=== PATIENT | female | born 1965 | race Caucasian/White ===

== ENCOUNTER 2021-06-07 14:31 | Inpatient (IN) ==
[2021-06-07] MEDS ORDERED: ALBUTEROL/IPRATROPIUM 3 ML NEB RESP TX STA (19:54)
[2021-06-07] MEDS ORDERED: methylPREDNISolone SOD SUC 125 MG/2 ML VIAL IV STA (19:55)
[2021-06-07] MEDS ORDERED: cefTRIAXone 1,000 MG in SODIUM CHLORIDE 0.9% 100 ML IV STA (19:55)
[2021-06-07 20:18] LABS: Basophils # 0.1 10*3/uL (0.0-0.2); Basophils % 0.3 % (0.0-0.8); Eosinophils # 0.1 10*3/uL (0.0-0.87); Eosinophils % 0.7 % (0.00-10.9); Hematocrit 38.2 VOL% (35.7-47.0); Immature Granulocytes % 0.5 %; Immature Granulocytes Absolute 0.08 #; Lymphocytes # 3.8 10*3/uL (1.4-4.0); Lymphocytes % 21.9 % (21.3-54.2); Mean Corpuscular HGB Conc 31.4 GM/DL (32-36); Mean Platelet Volume 10.6 FL (9.6-12.0); Monocytes % 3.9 % (1.7-12.7); Neutrophils % 72.7 % (38.7-73.9); Platelet Count 194 T/CUMM (130-400); Red Blood Count 3.86 MC/CUMM (3.8-5.5); Red Cell Distribution Width 14.1 % (9.3-17.3); White Blood Count 17.3 T/CUMM (4-12)
[2021-06-07 20:39] LABS: Alanine Aminotransferase 14 U/L (13-56); Albumin 3.2 G/DL (3.4-5.0); Alkaline Phosphatase 108 U/L (45-117); Aspartate Amino Transferase 40 U/L (0-37); Blood Urea Nitrogen 16 MG/DL (7-18); Calcium 8.6 MG/DL (8.5-10.1); Carbon Dioxide 29 MMOL/L (21-32); Estimated Glom Filtration Rate 99 ML/MIN; Glucose 85 MG/DL (74-106); Osmolality,Calculated 276.5 MOS/KG (273-304); Potassium 4.5 MMOL/L (3.5-5.1); Sodium 139 MMOL/L (136-145); Total Protein 6.9 G/DL (6.4-8.2)
[2021-06-07] MEDS ORDERED: SODIUM CHLORIDE 0.9% 1,000 ML IV STA ×2 (21:18→22:20)
[2021-06-07] MEDS ORDERED: GLUCAGON 1 MG VIAL IM PRN (21:29)
[2021-06-07] MEDS ORDERED: MAGNESIUM SULF RIDER 2 GM/50 ML PREMIX IV PRN (21:29)
[2021-06-07] MEDS ORDERED: MAGNESIUM SULF RIDER 4 GM/100 ML PREMIX IV PRN (21:29)
[2021-06-07] MEDS ORDERED: SODIUM CHLORIDE 0.9% 2,850 ML IV ONE (21:29)
[2021-06-07] MEDS ORDERED: SIMETHICONE CHEW 125 MG TABLET PO PRN (21:33)
[2021-06-07] MEDS ORDERED: hydrALAZINE 20 MG/1 ML VIAL IV PRN (21:33)
[2021-06-07 21:46] LABS: Bacteria,Urine Occasional /HPF (Few); Bilirubin,Urine Negative (Negative); Blood, Urine Negative (Negative); Glucose,Urine (UA) Negative (Negative); Ketones,Urine 5 mg/dL (Negative); Mucus,Urine Occasional /LPF (Occasional); Nitrite,Urine Negative (Negative); Protein,Urine Negative; RBC,Urine 2 /HPF (0-4); Squamous Epithelial Cell,Urine Occasional /HPF (0-10); Urine Appearance CLEAR (Clear); Urine Color Yellow (Yellow); Urine Specific Gravity 1.025 (1.001-1.035); Urine Urobilinogen < 2.0 EU/DL (<2.0)
[2021-06-07] MEDS ORDERED: DEXTROSE 50% 25 GM/50 ML SYRINGE IV PRN (22:40)
[2021-06-07 22:56] LABS: INR 1.1; PT Patient Result 12.3 SECS (10.5-12.0); Partial Thromboplastin Time 21.4 SECS (23.8-32.1)
[2021-06-08] MEDS: ALBUTEROL/IPRATROPIUM 3 ML NEB RESP TX SCH ×5 (00:23→19:55)
[2021-06-08 00:34] LABS: Basophils % 0.3 % (0.0-0.8); Eosinophils % 0.1 % (0.00-10.9); Hematocrit 39.4 VOL% (35.7-47.0); Hemoglobin 12.6 GM/DL (12.0-16.0); Immature Granulocytes % 1.2 %; Immature Granulocytes Absolute 0.16 #; Lymphocytes # 0.9 10*3/uL (1.4-4.0); Lymphocytes % 6.7 % (21.3-54.2); Mean Corpuscular Volume 98.7 FL (87-102); Mean Platelet Volume 10.3 FL (9.6-12.0); Monocytes % 0.7 % (1.7-12.7); Platelet Count 204 T/CUMM (130-400); Red Blood Count 3.99 MC/CUMM (3.8-5.5); Red Cell Distribution Width 13.9 % (9.3-17.3); White Blood Count 13.8 T/CUMM (4-12)
[2021-06-08 00:58] LABS: Calcium 8.5 MG/DL (8.5-10.1); Osmolality,Calculated 277.7 MOS/KG (273-304); Potassium 3.7 MMOL/L (3.5-5.1); Risk Ratio 2.8; Thyroid Stimulating Hormone 0.535 uIU/ml (0.358-3.74); VLDL Cholesterol 23.4 MG/DL
[2021-06-08 01:00] LABS: Lymphocytes 9 % (20-55); Segmented Neutrophils 91 % (50-85); Total Cells Counted 100
[2021-06-08 01:01] LABS: Hypochromia 2+; Platelet Estimate Normal
[2021-06-08 01:02] LABS: Stomatocytes 1+
[2021-06-08] MEDS: ENOXAPARIN 40 MG/0.4 ML SYRINGE SUBCUT SCH ×2 (01:20→21:19)
[2021-06-08] MEDS: AZITHROMYCIN INJ 500 MG in SODIUM CHLORIDE 0.9% 250 ML IV SCH ×2 (01:20→23:43)
[2021-06-08] MEDS: POTASSIUM CHLORIDE RIDER 10 MEQ/100 ML PREMIX IV PRN ×4 (02:57→10:00)
[2021-06-08] MEDS: ONDANSETRON 4 MG/2 ML VIAL IV PRN (04:10)
[2021-06-08] MEDS: SODIUM CHLORIDE 0.9% 1,000 ML IV SCH ×2 (06:23→16:01)
[2021-06-08] MEDS: PANTOPRAZOLE 40 MG TABLET PO SCH (08:04)
[2021-06-08] MEDS: guaiFENesin/DM ER 600-30 MG TABLET PO PRN (08:04)
[2021-06-08] MEDS: DOCUSATE SODIUM 100 MG CAPSULE PO SCH ×2 (08:04→21:18)
[2021-06-08] MEDS: IBUPROFEN 600 MG TABLET PO PRN (12:08)
[2021-06-08] MEDS: ACETAMINOPHEN 325 MG TABLET PO PRN (16:06)
[2021-06-08] MEDS: cefTRIAXone 1,000 MG in SODIUM CHLORIDE 0.9% 100 ML IV SCH (21:19)
[2021-06-09] MEDS: ALBUTEROL/IPRATROPIUM 3 ML NEB RESP TX SCH ×4 (00:43→19:49)
[2021-06-09] MEDS: ONDANSETRON 4 MG/2 ML VIAL IV PRN ×2 (01:08→05:10)
[2021-06-09] MEDS: SODIUM CHLORIDE 0.9% 1,000 ML IV SCH ×3 (03:44→21:16)
[2021-06-09] MEDS: IBUPROFEN 600 MG TABLET PO PRN ×3 (03:45→23:35)
[2021-06-09] MEDS: guaiFENesin/DM ER 600-30 MG TABLET PO PRN ×2 (03:46→17:35)
[2021-06-09 07:34] LABS: Basophils % 0.2 % (0.0-0.8); Eosinophils # 0.1 10*3/uL (0.0-0.87); Eosinophils % 0.6 % (0.00-10.9); Hematocrit 35.9 VOL% (35.7-47.0); Hemoglobin 10.7 GM/DL (12.0-16.0); Immature Granulocytes % 0.3 %; Immature Granulocytes Absolute 0.04 #; Lymphocytes # 3.4 10*3/uL (1.4-4.0); Lymphocytes % 27.1 % (21.3-54.2); Mean Corpuscular HGB Conc 29.8 GM/DL (32-36); Mean Corpuscular Volume 105.6 FL (87-102); Mean Platelet Volume 10.4 FL (9.6-12.0); Monocytes % 4.2 % (1.7-12.7); Neutrophils % 67.6 % (38.7-73.9); Red Cell Distribution Width 14.2 % (9.3-17.3); White Blood Count 12.5 T/CUMM (4-12)
[2021-06-09 07:39] LABS: Platelet Count 156 T/CUMM (130-400)
[2021-06-09 07:57] LABS: Albumin 2.7 G/DL (3.4-5.0); Bilirubin,Total 0.8 MG/DL (0.20-1.00); Calcium 7.9 MG/DL (8.5-10.1); Osmolality,Calculated 279.3 MOS/KG (273-304); Potassium 4.5 MMOL/L (3.5-5.1); Total Protein 6.4 G/DL (6.4-8.2)
[2021-06-09] MEDS: PANTOPRAZOLE 40 MG TABLET PO SCH (08:51)
[2021-06-09] MEDS: DOCUSATE SODIUM 100 MG CAPSULE PO SCH ×2 (08:51→21:07)
[2021-06-09] MEDS: ACETAMINOPHEN 325 MG TABLET PO PRN (08:51)
[2021-06-09] MEDS: FLUoxetine 20 MG CAPSULE PO SCH (21:07)
[2021-06-09] MEDS: GABAPENTIN 600 MG TABLET PO SCH (21:07)
[2021-06-09] MEDS: CARBIDOPA/LEVODOPA 25-100 MG TABLET PO SCH (21:07)
[2021-06-09] MEDS: cefTRIAXone 1,000 MG in SODIUM CHLORIDE 0.9% 100 ML IV SCH (21:08)
[2021-06-09] MEDS: AZITHROMYCIN INJ 500 MG in SODIUM CHLORIDE 0.9% 250 ML IV SCH (23:21)
[2021-06-09] MEDS: ENOXAPARIN 40 MG/0.4 ML SYRINGE SUBCUT SCH (23:22)
[2021-06-10] MEDS: ALBUTEROL/IPRATROPIUM 3 ML NEB RESP TX SCH ×4 (01:31→19:46)
[2021-06-10] MEDS: DOCUSATE SODIUM 100 MG CAPSULE PO SCH ×2 (08:14→20:15)
[2021-06-10] MEDS: FLUoxetine 20 MG CAPSULE PO SCH ×3 (08:14→20:15)
[2021-06-10] MEDS: GABAPENTIN 600 MG TABLET PO SCH ×3 (08:14→20:15)
[2021-06-10] MEDS: MULTIVITAMIN (CENTRUM) TABLET PO SCH (08:15)
[2021-06-10] MEDS: PANTOPRAZOLE 40 MG TABLET PO SCH (08:15)
[2021-06-10] MEDS: CARBIDOPA/LEVODOPA 25-100 MG TABLET PO SCH ×2 (08:15→20:15)
[2021-06-10] MEDS: SODIUM CHLORIDE 0.9% 1,000 ML IV SCH ×3 (08:31→22:46)
[2021-06-10 09:40] LABS: Basophils % 0.6 % (0.0-0.8); Eosinophils # 0.2 10*3/uL (0.0-0.87); Eosinophils % 2.4 % (0.00-10.9); Hematocrit 35.4 VOL% (35.7-47.0); Hemoglobin 10.6 GM/DL (12.0-16.0); Immature Granulocytes % 0.4 %; Immature Granulocytes Absolute 0.03 #; Lymphocytes # 3.5 10*3/uL (1.4-4.0); Lymphocytes % 48.6 % (21.3-54.2); Mean Corpuscular HGB Conc 29.9 GM/DL (32-36); Mean Corpuscular Volume 104.7 FL (87-102); Mean Platelet Volume 10.5 FL (9.6-12.0); Monocytes % 5.4 % (1.7-12.7); Neutrophils % 42.6 % (38.7-73.9); Platelet Count 162 T/CUMM (130-400); Red Blood Count 3.38 MC/CUMM (3.8-5.5); Red Cell Distribution Width 14.4 % (9.3-17.3); White Blood Count 7.2 T/CUMM (4-12)
[2021-06-10 10:09] LABS: Osmolality,Calculated 282.8 MOS/KG (273-304); Potassium 4.4 MMOL/L (3.5-5.1)
[2021-06-10] MEDS: ONDANSETRON 4 MG/2 ML VIAL IV PRN ×3 (11:35→20:15)
[2021-06-10] MEDS: FLUCONAZOLE 200 MG TABLET PO SCH (11:57)
[2021-06-10] MEDS ORDERED: OXYMETAZOLINE 0.05% NASAL SPRAY 15 ML BOTTLE BOTH NARES PRN (15:07)
[2021-06-10] MEDS: predniSONE 20 MG TABLET PO SCH (15:22)
[2021-06-10] MEDS: CEFEPIME 1,000 MG in SODIUM CHLORIDE 0.9% 100 ML IV SCH ×2 (15:26→22:43)
[2021-06-10] MEDS: ENOXAPARIN 40 MG/0.4 ML SYRINGE SUBCUT SCH (22:34)
[2021-06-10] MEDS: IBUPROFEN 600 MG TABLET PO PRN (22:39)
[2021-06-10] MEDS: AZITHROMYCIN INJ 500 MG in SODIUM CHLORIDE 0.9% 250 ML IV SCH (23:19)
[2021-06-11] MEDS: ONDANSETRON 4 MG/2 ML VIAL IV PRN ×4 (00:11→13:04)
[2021-06-11] MEDS: ALBUTEROL/IPRATROPIUM 3 ML NEB RESP TX SCH ×3 (00:11→13:10)
[2021-06-11] MEDS: CEFEPIME 1,000 MG in SODIUM CHLORIDE 0.9% 100 ML IV SCH ×3 (04:53→16:21)
[2021-06-11] MEDS: SODIUM CHLORIDE 0.9% 1,000 ML IV SCH ×2 (06:59→16:20)
[2021-06-11] MEDS: IBUPROFEN 600 MG TABLET PO PRN (07:35)
[2021-06-11] MEDS: GABAPENTIN 600 MG TABLET PO SCH ×2 (08:49→16:20)
[2021-06-11] MEDS: PANTOPRAZOLE 40 MG TABLET PO SCH (08:49)
[2021-06-11] MEDS: FLUoxetine 20 MG CAPSULE PO SCH ×2 (08:49→16:21)
[2021-06-11] MEDS: FLUCONAZOLE 200 MG TABLET PO SCH (08:49)
[2021-06-11] MEDS: CARBIDOPA/LEVODOPA 25-100 MG TABLET PO SCH (08:49)
[2021-06-11] MEDS: DOCUSATE SODIUM 100 MG CAPSULE PO SCH (08:49)
[2021-06-11] MEDS: MULTIVITAMIN (CENTRUM) TABLET PO SCH (08:49)
[2021-06-11] MEDS: predniSONE 20 MG TABLET PO SCH (08:56)
[2021-06-11] MEDS: guaiFENesin/DM ER 600-30 MG TABLET PO PRN (08:56)
[2021-06-11 12:51] VITALS: BP 141/95
== END 2021-06-11 16:00 | disposition home or self-care (01) | DRG 689 ==
LOC: N.ED 14:31 → N.EDINP 21:29 → N.3E 23:58
PROVIDERS: ADMIT Internal Medicine; ATTEND Internal Medicine

== ENCOUNTER 2021-06-18 00:11 | Inpatient (IN) ==
[2021-06-18] MEDS ORDERED: ASPIRIN 325 MG TABLET PO STA (00:45)
[2021-06-18 01:02] LABS: ABG Base Excess 8.1 MMOL/L (-2.5-2.5); ABG HCO3 31.7 MMOL/L (20-26); ABG Oxygen Saturation 91.5 % (95-100); ABG PCO2 44.3 MM HG (35-48); ABG PH 7.477 (7.35-7.45); ABG TCO2 28.9 MMOL/L (23-27); Allen Test Positive
[2021-06-18 01:29] LABS: Basophils % 0.7 % (0.0-0.8); Eosinophils # 0.1 10*3/uL (0.0-0.87); Eosinophils % 1.1 % (0.00-10.9); Hemoglobin 12.5 GM/DL (12.0-16.0); Immature Granulocytes % 0.2 %; Immature Granulocytes Absolute 0.01 #; Lymphocytes # 1.2 10*3/uL (1.4-4.0); Lymphocytes % 22.3 % (21.3-54.2); Mean Corpuscular HGB Conc 32.1 GM/DL (32-36); Mean Corpuscular Volume 98.2 FL (87-102); Neutrophils % 66.7 % (38.7-73.9); Platelet Count 236 T/CUMM (130-400); Red Blood Count 3.97 MC/CUMM (3.8-5.5); White Blood Count 5.6 T/CUMM (4-12)
[2021-06-18 01:38] LABS: INR 1.2; PT Patient Result 13.2 SECS (10.5-12.0)
[2021-06-18 01:42] LABS: Albumin 3.6 G/DL (3.4-5.0); Bilirubin,Total 0.6 MG/DL (0.20-1.00); Potassium 4.4 MMOL/L (3.5-5.1); Total Protein 7.7 G/DL (6.4-8.2)
[2021-06-18] MEDS ORDERED: PIPERACILLIN/TAZOBACTAM 3,375 MG in SODIUM CHLORIDE 0.9% 100 ML IV STA (01:56)
[2021-06-18] MEDS ORDERED: DEXAMETHASONE 10 MG/1 ML VIAL IV ONE (01:57)
[2021-06-18 02:13] LABS: Bilirubin,Urine Negative (Negative); Blood, Urine Negative (Negative); Glucose,Urine (UA) Negative (Negative); Ketones,Urine Negative (Negative); Nitrite,Urine Negative (Negative); Protein,Urine Negative; RBC,Urine <1 /HPF (0-4); Squamous Epithelial Cell,Urine Occasional /HPF (0-10); Urine Appearance CLEAR (Clear); Urine Color Straw (Yellow); Urine Specific Gravity 1.004 (1.001-1.035); Urine Urobilinogen < 2.0 EU/DL (<2.0)
[2021-06-18] MEDS ORDERED: HYDROmorphone 2 MG/1 ML VIAL IV STA (03:31)
[2021-06-18] MEDS ORDERED: GLUCAGON 1 MG VIAL IM PRN (03:31)
[2021-06-18] MEDS ORDERED: DEXTROSE 50% 25 GM/50 ML SYRINGE IV PRN (03:31)
[2021-06-18] MEDS ORDERED: MAGNESIUM SULF RIDER 2 GM/50 ML PREMIX IV ONE (07:56)
[2021-06-18 08:20] LABS: Ferritin 116.3 ng/mL (8-252)
[2021-06-18] MEDS ORDERED: REMDESIVIR 200 MG in SODIUM CHLORIDE 0.9% 210 ML IV ONE (09:00)
[2021-06-18] MEDS: oxyCODONE/ACETAMINOPHEN 5-325 MG TABLET PO SCH ×4 (09:10→20:30)
[2021-06-18] MEDS: ENOXAPARIN 40 MG/0.4 ML SYRINGE SUBCUT SCH (09:12)
[2021-06-18] MEDS: PIPERACILLIN/TAZOBACTAM 3,375 MG in SODIUM CHLORIDE 0.9% 100 ML IV SCH ×2 (09:25→18:38)
[2021-06-18] MEDS ORDERED: FUROSEMIDE 20 MG TABLET PO PRN (11:01)
[2021-06-18] MEDS: GABAPENTIN 400 MG CAPSULE PO SCH ×2 (16:00→20:30)
[2021-06-18] MEDS: VANCOMYCIN INJ 1,500 MG in SODIUM CHLORIDE 0.9% 500 ML IV SCH ×2 (16:50→22:40)
[2021-06-18 18:33] VITALS: BP 134/62
[2021-06-18] MEDS: FLUoxetine 20 MG CAPSULE PO SCH ×2 (18:38→20:30)
[2021-06-18] MEDS: LOSARTAN 25 MG TABLET PO SCH (20:30)
[2021-06-18] MEDS: CARBIDOPA/LEVODOPA 25-100 MG TABLET PO SCH (20:30)
[2021-06-19] MEDS: PIPERACILLIN/TAZOBACTAM 3,375 MG in SODIUM CHLORIDE 0.9% 100 ML IV SCH ×2 (00:45→08:02)
[2021-06-19] MEDS: ONDANSETRON 4 MG/2 ML VIAL IV PRN ×3 (00:45→17:49)
[2021-06-19] MEDS: ACETAMINOPHEN 325 MG TABLET PO PRN ×2 (05:00→17:49)
[2021-06-19 06:04] LABS: Basophils % 0.1 % (0.0-0.8); Hematocrit 34.8 VOL% (35.7-47.0); Hemoglobin 11.2 GM/DL (12.0-16.0); Immature Granulocytes % 0.4 %; Immature Granulocytes Absolute 0.04 #; Lymphocytes # 0.8 10*3/uL (1.4-4.0); Mean Corpuscular HGB Conc 32.2 GM/DL (32-36); Mean Corpuscular Volume 98.9 FL (87-102); Monocytes % 5.4 % (1.7-12.7); Neutrophils % 85.1 % (38.7-73.9); Platelet Count 200 T/CUMM (130-400); Red Blood Count 3.52 MC/CUMM (3.8-5.5); Red Cell Distribution Width 14.4 % (9.3-17.3); White Blood Count 9.2 T/CUMM (4-12)
[2021-06-19 06:30] LABS: Anisocytosis 1+; Band Neutrophils 16 % (0-10); Lymphocytes 6 % (20-55); Platelet Estimate Normal; Segmented Neutrophils 69 % (50-85); Total Cells Counted 100
[2021-06-19 06:31] LABS: Macrocytosis 1+
[2021-06-19 06:33] LABS: Alanine Aminotransferase 38 U/L (13-56); Albumin 2.8 G/DL (3.4-5.0); Alkaline Phosphatase 79 U/L (45-117); Aspartate Amino Transferase 34 U/L (0-37); Bilirubin,Total < 0.39 MG/DL (0.20-1.00); Blood Urea Nitrogen 13 MG/DL (7-18); Calcium 8.4 MG/DL (8.5-10.1); Carbon Dioxide 28 MMOL/L (21-32); Estimated Glom Filtration Rate 103 ML/MIN; Glucose 135 MG/DL (74-106); Osmolality,Calculated 274.8 MOS/KG (273-304); Sodium 137 MMOL/L (136-145); Total Protein 6.8 G/DL (6.4-8.2)
[2021-06-19 06:51] LABS: Ferritin 92.9 ng/mL (8-252)
[2021-06-19] MEDS: ENOXAPARIN 40 MG/0.4 ML SYRINGE SUBCUT SCH (08:03)
[2021-06-19] MEDS: oxyCODONE/ACETAMINOPHEN 5-325 MG TABLET PO SCH ×3 (08:03→20:12)
[2021-06-19] MEDS: FLUoxetine 20 MG CAPSULE PO SCH ×3 (08:03→20:12)
[2021-06-19] MEDS: GABAPENTIN 400 MG CAPSULE PO SCH ×3 (08:03→20:11)
[2021-06-19] MEDS: CARBIDOPA/LEVODOPA 25-100 MG TABLET PO SCH ×2 (08:03→20:12)
[2021-06-19] MEDS: LOSARTAN 25 MG TABLET PO SCH ×2 (08:03→20:11)
[2021-06-19] MEDS: REMDESIVIR 100 MG in SODIUM CHLORIDE 0.9% 100 ML IV SCH (08:54)
[2021-06-19] MEDS ORDERED: DEXAMETHASONE 10 MG/1 ML VIAL IV SCH (09:00)
[2021-06-19] MEDS: FLUCONAZOLE 200 MG TABLET PO SCH (10:01)
[2021-06-19] MEDS: CEFDINIR 300 MG CAPSULE PO SCH ×2 (11:35→20:11)
[2021-06-20] MEDS: ONDANSETRON 4 MG/2 ML VIAL IV PRN (01:09)
[2021-06-20] MEDS: oxyCODONE/ACETAMINOPHEN 5-325 MG TABLET PO SCH ×2 (02:41→09:11)
[2021-06-20] MEDS ORDERED: DEXAMETHASONE 4 MG TABLET PO SCH (09:00)
[2021-06-20] MEDS: CEFDINIR 300 MG CAPSULE PO SCH (09:11)
[2021-06-20] MEDS: LOSARTAN 25 MG TABLET PO SCH (09:11)
[2021-06-20] MEDS: FLUoxetine 20 MG CAPSULE PO SCH (09:11)
[2021-06-20] MEDS: CARBIDOPA/LEVODOPA 25-100 MG TABLET PO SCH (09:12)
[2021-06-20] MEDS: FLUCONAZOLE 200 MG TABLET PO SCH (09:12)
[2021-06-20] MEDS: GABAPENTIN 400 MG CAPSULE PO SCH (09:12)
[2021-06-20] MEDS: REMDESIVIR 100 MG in SODIUM CHLORIDE 0.9% 100 ML IV SCH (09:13)
[2021-06-20] MEDS: ENOXAPARIN 40 MG/0.4 ML SYRINGE SUBCUT SCH (09:13)
== END 2021-06-20 11:20 | disposition home or self-care (01) | DRG 177 ==
LOC: N.ED 00:11 → N.EDINP 03:31 → SUATTDRO 03:31 → N.CC 15:54
PROVIDERS: ADMIT Internal Medicine; ATTEND Internal Medicine